=== PATIENT | female | born 1985 | race Caucasian/White ===

== ENCOUNTER 2023-10-23 13:15 | Emergency (ER) | payer OTHER, SELFPAY ==
[2023-10-23 13:23] VITALS: BP 138/84; PULSE 84; TEMP 36.8; O2SAT 98; BMI 31.6
[2023-10-23] MEDS: SURGIFOAM GEL SPONGE SIZE 100 1 EACH TOPICAL (13:30)
--- NOTE | 2023-11-13 10:44 | ED.WOUNDLAC1 ---
HPI - Wound/Laceration General Chief Complaint: Wound/Laceration Stated Complaint: UPPER EXTREMITY INJURY Time Seen by Provider: 10/23/23 13:32 Source: patient Mode of arrival: walk-in Limitations: no limitations History of Present Illness HPI narrative: Patient presents with an injury to her left thumb. 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 She has been holding pressure but the bleeding will not succumb. We will confirm her tetanus status. She has no loss of feeling. The injury is adjacent to her distal nailbed. She has no bleeding disorders. She is not on any anticoagulation therapy. There is no other injuries today. Related Data Allergies Allergy/AdvReac Type Severity Reaction Status Date / Time No Known Drug Allergies Allergy Verified 10/23/23 13:23 Exam Narrative Exam Narrative: Awake alert pleasant vital signs are stable. She has an avulsion type laceration adjacent to the nailbed of the distal phalanx of her left thumb. There is slow venous oozing with no arterial bleeding. It is well away from any neurovascular structures. No other injuries are noted. Constitutional Vital Signs, click to edit/add: Last Vital Signs Temp 98.2 F 10/23/23 13:23 Pulse 84 10/23/23 13:23 Resp 18 10/23/23 13:23 BP 138/84 10/23/23 13:23 Pulse Ox 98 10/23/23 13:23 O2 Del Method Room Air 10/23/23 13:23 Course Vital Signs Vital signs: Vital Signs Temperature 98.2 F 10/23/23 13:23 Pulse Rate 84 10/23/23 13:23 Respiratory Rate 18 10/23/23 13:23 Blood Pressure 138/84 10/23/23 13:23 Pulse Oximetry 98 10/23/23 13:23 Oxygen Delivery Method Room Air 10/23/23 13:23 Temperature 98.2 F 10/23/23 13:23 Pulse Rate 84 10/23/23 13:23 Respiratory Rate 18 10/23/23 13:23 Blood Pressure 138/84 10/23/23 13:23 Pulse Oximetry 98 10/23/23 13:23 Oxygen Delivery Method Room Air 10/23/23 13:23 MDM - Wound/Laceration MDM Narrative Medical decision making narrative: Since this is an avulsion it would be difficult to close. We will apply pressure dressing and Gelfoam to help facilitate clotting. If this does not work she may need some suture binding procedure to facilitate this. Discharge Plan Discharge Stand Alone Forms: Portal Instructions Chief Complaint: Wound/Laceration Clinical Impression: Laceration of left thumb Patient Disposition: Home, Self-Care Time of Disposition Decision: 13:32 Print Language: Spanish Instructions: Laceration (ED) Additional Instructions: Routine wound care instruction sheet Discharge Date/Time: 10/23/23 13:46
== END 2023-10-23 13:46 | disposition home or self-care (01) ==
LOC: ER 14:29
PROVIDERS: Emergency Provider Emergency Medicine Emergency Medical Services
DX: S61.012A Laceration without foreign body of left thumb without damage to nail, initial encounter (principal); W26.8XXA Contact with other sharp object(s), not elsewhere classified, initial encounter
CPT/HCPCS: 99281